=== PATIENT | female | born 1965 | race Caucasian/White ===

== ENCOUNTER 2017-12-24 21:30 | Emergency (ER) | payer BC ==
--- NOTE | 2017-12-24 22:59 | EDM.PDOC ---
ED HPI GENERAL MEDICAL PROBLEM - General Chief Complaint: Head Injury Stated Complaint: FELL DOWN NECK/HEAD PAINS [id number] Time Seen by Provider: 12/24/17 22:45 History Limitations: Reports: No Limitations - History of Present Illness INITIAL COMMENTS - FREE TEXT/NARRATIVE: gong down basement steps and fell down last 2-3 landed forward hitting forehead on sheetrock felt cracking in neck, no loss of consciousness - Related Data Allergies Allergy/AdvReac Type Severity Reaction Status Date / Time amoxicillin Allergy Cannot Verified 11/24/14 08:04 Remember Home Meds: Home Meds Ascorbic Acid [Vitamin C] 1,000 mg PO DAILY 11/24/14 [History] Calcium Carbonate 600 mg PO DAILY 11/24/14 [History] Cholecalciferol (Vitamin D3) [Vitamin D] 400 units PO DAILY 11/24/14 [History] FLUoxetine HCl [Fluoxetine HCl] 20 mg PO DAILY 11/24/14 [History] Methylcellulose [Citrucel] 479 gm PO DAILY 11/24/14 [History] Multivitamin [Multi Vitamin Daily] 1 tab PO DAILY 11/24/14 [History] Omeprazole [Omeprazole] 20 mg PO DAILY 11/24/14 [History] Past Medical History Gastrointestinal History: Reports: GERD Psychiatric History: Reports: Anxiety, Depression Social & Family History - Family History Family Medical History: Noncontributory - Tobacco Use Smoking Status *Q: Unknown Ever Smoked - Caffeine Use Caffeine Use: Reports: Coffee, Tea - Recreational Drug Use Recreational Drug Use: No ED ROS GENERAL - Review of Systems Review Of Systems: ROS reveals no pertinent complaints other than HPI. ED EXAM, HEAD INJURY - Physical Exam Exam: See Below Exam Limited By: No Limitations General Appearance: Alert, No Apparent Distress Head: Normocephalic, Scalp Tenderness. No: Active Bleeding, Mota's Sign, Flap , Facial Abrasions, Facial Lacerations, Raccoon Eyes Nexus Criteria: No: Posterior, Midline Cervical Tenderness, Evidence of Intoxication, Altered Level of Consciousness, Focal Neurological Deficit Eyes: Bilateral Eye: EOMI, Normal Fundi, PERRL Ears: Normal External Exam, Normal TMs. No: Auricular Tenderness, Canal Discharge Nose: Normal Inspection Throat/Mouth: Normal Inspection, Normal Voice Neck: Non-Tender, Full Range of Motion, Normal Alignment Respiratory: No Respiratory Distress Cardiovascular: Normal Peripheral Pulses GI/Abdominal Exam: Normal Bowel Sounds (Female) Exam: Normal External Exam Extremities: Normal Inspection, Normal Range of Motion. No: Leg Pain Neurologic: No Motor/Sensory Deficits, Normal Mood/Affect, Oriented x 3 Skin: Normal Color - [place] Coma Score Best Eye Response ([place]): (4) Open Spontaneously Best Verbal Response ([place]): (5) Oriented Best Motor Response ([place]): (6) Obeys Commands Course - Vital Signs Last Recorded V/S: Last Vital Signs Temp 97.8 F 12/24/17 21:36 Pulse 86 12/24/17 21:36 Resp 16 12/24/17 21:36 BP 125/96 H 12/24/17 21:36 Pulse Ox 100 12/24/17 21:36 - Orders/Labs/Meds Meds: Medications Discontinued Medications Generic Name Dose Route Start Last Admin Trade Name Geo PRN Reason Stop Dose Admin Cyclobenzaprine HCl Confirm 12/24/17 22:58 12/24/17 23:01 Flexeril Administered 12/24/17 22:59 Not Given Dose 20 mg .ROUTE .STK-MED ONE - Radiology Interpretation Free Text/Narrative:: CT head and neck negative. - Re-Assessments/Exams Free Text/Narrative Re-Assessment/Exam: 12/24/17 22:59 2240 C- collar removed as C spine cleared by Ct Departure - Departure Time of Disposition: 22:54 Disposition: Home, Self-Care 01 Condition: Good Clinical Impression: Fall at home Qualifiers: Encounter type: initial encounter Qualified Code(s): W19.XXXA - Unspecified fall, initial encounter Contusion of head Qualifiers: Encounter type: initial encounter Contusion of head detail: other part of head Qualified Code(s): S00.83XA - Contusion of other part of head, initial encounter Sprain, neck Qualifiers: Encounter type: initial encounter Qualified Code(s): S13.9XXA - Sprain of joints and ligaments of unspecified parts of neck, initial encounter - Discharge Information Instructions: Concussion, Adult, [id number] Forms: ED Department Discharge Additional Instructions: heat or ice to neck area for comfort ibuprofen 600-800 mg every 8 hours as needed for pain head injury instructions follow up if any change in symptoms
[2017-12-24] MEDS: Cyclobenzaprine 10 MG Tab ONE (23:01)
== END 2017-12-24 23:05 | disposition home or self-care (01) ==
LOC: DL.ED 21:30
DX: S13.9XXA Sprain of joints and ligaments of unspecified parts of neck, initial encounter (principal); S00.83XA Contusion of other part of head, initial encounter; K21.9 Gastro-esophageal reflux disease without esophagitis; Z88.1 Allergy status to other antibiotic agents; Z79.899 Other long term (current) drug therapy; W10.8XXA Fall (on) (from) other stairs and steps, initial encounter
CPT/HCPCS: 70450; 72125; 99283

== ENCOUNTER 2019-08-27 05:26 | Day surgery (SDC) | payer BC ==
[2019-08-27] MEDS ORDERED: fentaNYL 100 MCG/2 ML SDV IV ONE ×3 (05:27→06:38)
[2019-08-27] MEDS ORDERED: Midazolam 1 MG/ML 2 ML SDV IV ONE ×7 (05:27→06:48)
[2019-08-27] MEDS ORDERED: fentaNYL 100 MCG/2 ML SDV ONE (06:13)
[2019-08-27] MEDS ORDERED: Midazolam 1 MG/ML 2 ML SDV ONE (06:13)
[2019-08-27] MEDS ORDERED: Sodium Chloride 0.9% 10 ML Syringe FLUSH PRN (07:00)
[2019-08-27] MEDS ORDERED: Dextrose 5%-0.45% NaCl 1,000 ML IV SCH (07:00)
--- NOTE | 2019-08-27 11:11 | OR ---
DATE: 08/27/2019 PROCEDURE: Total colonoscopy and cold snare polypectomy. INSTRUMENT USED: PCF-H190DL Olympus video panendoscope. PREMEDICATIONS: Fentanyl 100 mcg intravenous, Versed 4 mg intravenous, nasal O2 cannula. The procedure was done under pulse oximetry, BP recording, and utility tender carding. INDICATION: Screening colonoscopic examination is done for detection of any polypoid lesions and removal, endoscopic hemostasis therapy if needed. DESCRIPTION OF PROCEDURE: Initial rectal exam showed small external hemorrhoidal tags. Rigid anoscopy was normal. The colonoscope was passed with ease. In the proximal rectum, 3 mm sized benign-appearing polyp was noted, photograph was taken, cold snare polypectomy was done, the tissue was retrieved and sent for histopathology. The colonoscope was passed with ease up to the ileocecal area. Photographs were taken of the normal-appearing cecum, identified by double-bulged ileocecal folds. The colon was found to be tortuous and redundant. No bleeding was noted from any of the visualized areas at the commencement of the examination. The bowel preparation was found to be adequate, [place] scale 2 in all the regions. No stricture. No vascular ectasia. No large isolated ulcerations seen. No evidence of diffuse inflammatory bowel disease in the form of friability, contact bleeding, or ulcerations. Probing the proximal sides of folds and flexures using adequate distention and clearing up the stool material, withdrawal of the scope was made. Cecum to rectum time over 6 minutes. No bleeding was noted from any of the visualized areas at the completion of examination. IMPRESSION: 1. External hemorrhoids. 2. Diminutive rectal polyp. The patient tolerated the procedure well. [facility] /[id number]
== END 2019-08-27 09:07 | disposition home or self-care (01) ==
LOC: DL.ENDO 05:26
PROVIDERS: ATTEND Internal Medicine Gastroenterology
DX: Z12.11 Encounter for screening for malignant neoplasm of colon (principal); D12.8 Benign neoplasm of rectum; K64.4 Residual hemorrhoidal skin tags; Q43.8 Other specified congenital malformations of intestine
CPT/HCPCS: 45385; J2250; J3010; J7042